=== PATIENT | female | born 1995 | race Caucasian/White ===

== ENCOUNTER 2016-10-05 18:30 | Emergency (ER) | payer OTHER ==
[2016-10-05 18:58] VITALS: BP 108/72
--- NOTE | 2016-10-05 19:13 | UC ---
UC General HPI - History of Current Complaint Chief Complaint: UCGeneralIllness Stated Complaint: ACHY/CONGESTION/FATIGUE Time Seen by Provider: 10/05/16 19:05 Hx Obtained From: Patient Onset/Duration: Gradual Onset - 3-4 days, Lasting Days, Worse Since - onset Onset Severity: Mild Current Severity: Moderate Pain Location at: feels achy all over. Character: aching Associated Signs & Symptoms: Positive: Agitation, Fever, Nausea - Allergy/Home Medications Allergies/Adverse Reactions: Allergies Allergy/AdvReac Type Severity Reaction Status Date / Time No Known Allergies Allergy Verified 10/05/16 18:59 Home Medications: Home Medications Oral Control 1 tab PO DAILY 10/05/16 [History Confirmed 10/05/16] PMH/Surg Hx/FS Hx/Imm Hx Previously Healthy: Yes Endocrine History Of: Denies: Thyroid Disease Respiratory History Of: Denies: Asthma - Surgical History Surgical History: None - Family History Known Family History: Positive: Cardiac Disease, Hypertension - Social History Occupation: Student Lives: Alone Alcohol Use: Weekly Substance Use Type: None Smoking Status (MU): Never Smoked Tobacco Have You Smoked in the Last Year: No Review of Systems Constitutional: Chills, Fatigue Eyes: Drainage, Eye Redness ENT: Other - swelling in the cheeks and eyes Neurological: Headache All Other Systems Reviewed And Are Negative: Yes Physical Exam Triage Information Reviewed: Yes Appearance: No Pain Distress, Well-Nourished, Ill-Appearing Vital Signs: Initial Vital Signs Temp 98.9 F 10/05/16 18:54 Pulse 73 10/05/16 18:54 Resp 14 10/05/16 18:54 BP 108/72 10/05/16 18:54 Pulse Ox 100 10/05/16 18:54 Vital Signs Reviewed: Yes Eyes: Positive: Conjunctiva Inflamed - mild injection OU ENT: Positive: Pharynx normal, TMs normal Neck: Positive: Tenderness @ - anterior cervical LA., Enlarged Nodes @ - Bilateral anterior Respiratory: Positive: Wheezing - expiratory wheeze with cough. Cardiovascular Exam: Normal Musculoskeletal Exam: Normal Neurological Exam: Normal Psychological Exam: Normal Skin Exam: Normal Course/Dx - Differential Dx - Multi-Symptom Differential Diagnoses: CVA, Metabolic Abnormality Provider Diagnoses: Acute sinusitis. Acute bronchospasm Discharge - Discharge Plan Condition: Stable Disposition: HOME Prescriptions: Amoxicillin (*) 875 mg PO BID #20 tab predniSONE TAB* [Deltasone TAB*] 20 mg PO DAILY #18 tab Patient Education Materials: Sinusitis (ED), Allergies (ED), Amoxicillin (By mouth), Prednisone (By mouth), Bronchospasm (ED) Additional Instructions: NEILMED SINUS RINSE: CHECK OUT AT [facility] Saline nasal wash helps with mucous, allergies and congestion. It can be used up to twice a day or only as needed. Use lukewarm tap water. It does not have to be sterilized or distilled water. Do 1/3 on each side and snort out of both nostrils. Repeat the process with 1/6 of the bottle on each side with snorting in between to finish the solution in the bottle
[2016-10-05] MEDS ORDERED: Amoxicillin/Clavulanate TAB* 875 MG PO ONE (19:19)
[2016-10-05] MEDS ORDERED: Amoxicillin PO (*) 500 MG CAP PO ONE (19:31)
== END 2016-10-05 19:41 | disposition home or self-care (01) ==
LOC: UCCORT 18:30
DX: J01.90 Acute sinusitis, unspecified (principal); J98.01 Acute bronchospasm
CPT/HCPCS: 99201; A9270-GY; G0463